=== PATIENT | female | born 1995 | race Caucasian/White ===

== ENCOUNTER 2023-10-26 00:43 | Inpatient (IN) | payer BC ==
[2023-10-26] MEDS ORDERED: SODIUM CHLORIDE 0.9% 500 ML INFUS.BAG IV ONE ×3 (01:15→05:14)
[2023-10-26] MEDS ORDERED: methylPREDNISolone NA SUCC 125 MG/2 ML VIAL IVPUSH ONE (01:15)
[2023-10-26] MEDS ORDERED: methylPREDNISolone NA SUCC 125 MG/2 ML VIAL ONE (01:41)
[2023-10-26] MEDS ORDERED: ALBUTEROL SO4 2.5/IPRATROPIUM 0.5 INH SOL 3 ML VIAL.NEB. NEB ONE (01:43)
[2023-10-26 01:46] VITALS: BMI 24.4
[2023-10-26 01:47] LABS: BASO % 0.4 % (0-2.0); EOS % 0.2 % (0-4.5); HEMOGLOBIN 13.4 GM/dL (10.7-15.3); LYMPH % 6.5 % (8-40); MCH 30.2 pg (25.7-33.7); MCHC 33.6 g/dl (32.0-36.0); MEAN CELL VOLUME 90.1 fl (80-96); MEAN PLT VOLUME 8.6 fl (7.5-11.1); MONO % 1.4 % (3.8-10.2); NEUT % 91.5 % (42.8-82.8); PLATELET COUNT 202 10^3/uL (134-434); RBC 4.44 M/mm3 (3.60-5.2); RDW 12.8 % (11.6-15.6); WHITE BLOOD COUNT 9.3 K/mm3 (4.0-10.0)
[2023-10-26] MEDS: ALBUTEROL SO4 2.5/IPRATROPIUM 0.5 INH SOL 3 ML VIAL.NEB. NEB SCH ×2 (01:52→02:05)
[2023-10-26 01:55] LABS: INR 1.04 (0.83-1.09); PROTHROMBIN TIME (PATIENT) 12.1 SEC (9.7-13.0)
[2023-10-26 01:58] LABS: ACTIVATED PTT 34.9 SECONDS (25.2-36.5)
[2023-10-26 02:04] LABS: POTASSIUM 3.3 mmol/L (3.5-5.1)
[2023-10-26 02:06] LABS: BLOOD UREA NITROGEN 10.4 mg/dL (7-18); CALCIUM 8.5 mg/dL (8.5-10.1); MAGNESIUM 1.5 mg/dL (1.8-2.4)
[2023-10-26 02:07] LABS: ALBUMIN 3.5 g/dl (3.4-5.0)
[2023-10-26 02:09] LABS: CREATININE 0.7 mg/dL (0.55-1.3)
[2023-10-26 02:11] LABS: BILIRUBIN,TOTAL 0.6 mg/dL (0.2-1); TOT PROT 7.4 g/dl (6.4-8.2)
[2023-10-26] MEDS ORDERED: ACETAMINOPHEN 1000 MG/100 ML BAG IVPB ONE (02:34)
[2023-10-26 02:47] LABS: ANISOCYTOSIS 0; MACROCYTOSIS 0
[2023-10-26] MEDS ORDERED: MAGNESIUM 1GM/D5W - 1 GM/100 ML IVPB IVPB ONE (03:05)
[2023-10-26] MEDS ORDERED: ACETAMINOPHEN INJECTION 100 ML IVPB ONE (03:06)
[2023-10-26] MEDS ORDERED: VANCOMYCIN 1,000 MG in DEXTROSE 5%-WATER - 250 ML IVPB ONE (04:01)
[2023-10-26] MEDS ORDERED: SODIUM CHLORIDE FOR INHALATION 3 ML VIAL.NEB IH ONE (04:08)
[2023-10-26 05:12] LABS: LACTIC ACID 2.4 mmol/L (0.4-2.0)
[2023-10-26] MEDS ORDERED: VANCOMYCIN 1 GRAM (PRE-DOCKED) 1,000 MG/250 ML BAG IVPB ONE (06:30)
[2023-10-26] MEDS ORDERED: ACETAMINOPHEN 325 MG TABLET (FP) PO PRN (08:11)
[2023-10-26] MEDS ORDERED: guaiFENesin 200 MG/10 ML 10 ML UNIT-DOSE CUPS PO PRN (08:13)
[2023-10-26] MEDS ORDERED: NICOTINE POLACRILEX 2 MG GUM BUC PRN (08:14)
[2023-10-26] MEDS ORDERED: POTASSIUM CHLORIDE TABS 20 MEQ TABLET.ER (FP) PO ONE ×2 (09:00→10:02)
[2023-10-26] MEDS ORDERED: ENOXAPARIN NA (PORCINE) 40 MG/0.4 ML DISP.SYRIN SQ ONE (09:51)
[2023-10-26] MEDS ORDERED: OSELTAMIVIR PHOSPHATE 75 MG CAPSULE ONE ×2 (09:51→22:49)
[2023-10-26] MEDS ORDERED: CEFTRIAXONE 1 GM/50 ML BAG ONE (09:52)
[2023-10-26] MEDS: OSELTAMIVIR PHOSPHATE 75 MG CAPSULE PO SCH ×2 (09:59→22:51)
[2023-10-26] MEDS: LACTATED RINGERS SOLUTION 1,000 ML/1,000 ML INFUS.BAG IV SCH (10:00)
[2023-10-26] MEDS: ENOXAPARIN NA (PORCINE) 40 MG/0.4 ML DISP.SYRIN SQ SCH (10:00)
[2023-10-26] MEDS ORDERED: CEFTRIAXONE 1 GM in DEXTROSE 5%-WATER - 50 ML IVPB SCH (10:00)
[2023-10-27 06:13] VITALS: RESP 18
[2023-10-27] MEDS: levoFLOXacin 750 MG TABLET PO SCH (06:15)
[2023-10-27 07:13] LABS: BASO % 0.4 % (0-2.0); EOS % 0.1 % (0-4.5); HEMATOCRIT 33.1 % (32.4-45.2); HEMOGLOBIN 11.1 GM/dL (10.7-15.3); LYMPH % 9.8 % (8-40); MCH 30.1 pg (25.7-33.7); MCHC 33.4 g/dl (32.0-36.0); MEAN CELL VOLUME 90.1 fl (80-96); MONO % 2.6 % (3.8-10.2); NEUT % 87.1 % (42.8-82.8); PLATELET COUNT 185 10^3/uL (134-434); RBC 3.67 M/mm3 (3.60-5.2); WHITE BLOOD COUNT 16.5 K/mm3 (4.0-10.0)
[2023-10-27 07:29] LABS: POTASSIUM 3.4 mmol/L (3.5-5.1)
[2023-10-27 07:34] LABS: CALCIUM 8.5 mg/dL (8.5-10.1)
[2023-10-27 07:35] LABS: BLOOD UREA NITROGEN 8.7 mg/dL (7-18); MAGNESIUM 1.9 mg/dL (1.8-2.4)
[2023-10-27 07:37] LABS: CREATININE 0.5 mg/dL (0.55-1.3); PHOSPHOROUS 2.4 mg/dL (2.5-4.9)
[2023-10-27 07:38] LABS: BILIRUBIN,TOTAL 0.9 mg/dL (0.2-1)
[2023-10-27 07:39] LABS: TOT PROT 6.4 g/dl (6.4-8.2)
[2023-10-27] MEDS ORDERED: OSELTAMIVIR PHOSPHATE 75 MG CAPSULE ONE (11:41)
[2023-10-27] MEDS: OSELTAMIVIR PHOSPHATE 75 MG CAPSULE PO SCH (11:42)
[2023-10-27] MEDS: LACTATED RINGERS SOLUTION 1,000 ML/1,000 ML INFUS.BAG IV SCH (11:42)
[2023-10-27] MEDS: ENOXAPARIN NA (PORCINE) 40 MG/0.4 ML DISP.SYRIN SQ SCH (11:45)
[2023-10-27] MEDS ORDERED: guaiFENesin 200 MG/10 ML 10 ML UNIT-DOSE CUPS ONE (11:46)
[2023-10-27] MEDS ORDERED: NAPH,MB-DB/K PH,MBDB POWDER PACKET ONE (15:02)
[2023-10-27] MEDS: NAPH,MB-DB/K PH,MBDB POWDER PACKET PO SCH (15:05)
[2023-10-28] MEDS ORDERED: OSELTAMIVIR PHOSPHATE 75 MG CAPSULE ONE (01:27)
[2023-10-28] MEDS ORDERED: NAPH,MB-DB/K PH,MBDB POWDER PACKET ONE (01:27)
[2023-10-28] MEDS: NAPH,MB-DB/K PH,MBDB POWDER PACKET PO SCH ×2 (01:31→10:21)
[2023-10-28] MEDS ORDERED: ACETAMINOPHEN 325 MG TABLET (FP) ONE (01:31)
[2023-10-28] MEDS: OSELTAMIVIR PHOSPHATE 75 MG CAPSULE PO SCH ×2 (01:31→10:21)
[2023-10-28] MEDS: levoFLOXacin 750 MG TABLET PO SCH (06:38)
[2023-10-28 08:37] VITALS: BP 98/60; PULSE 71; TEMP 98.1
[2023-10-28] MEDS: ENOXAPARIN NA (PORCINE) 40 MG/0.4 ML DISP.SYRIN SQ SCH (10:21)
== END 2023-10-28 11:07 | disposition home or self-care (01) | DRG 871 ==
LOC: JER 00:43 → JERBED 01:16 → OBSVTOIN 09:34
PROVIDERS: ADMIT Internal Medicine; ATTEND Internal Medicine
DX: A41.89 Other specified sepsis (principal); J10.00 Influenza due to other identified influenza virus with unspecified type of pneumonia; R09.02 Hypoxemia; E87.6 Hypokalemia; E83.39 Other disorders of phosphorus metabolism; R00.0 Tachycardia, unspecified; D72.829 Elevated white blood cell count, unspecified
CPT/HCPCS: 0241U-QW; 36415; 71045-TC-FY; 71275-TC; 80053; 83605; 83735; 84100; 84484; 84703; 85025; 85610; 85730; 87040; 87899; 93005; 93010; 99285-25; G0378